=== PATIENT | male | born 1960 | race Caucasian/White ===

== ENCOUNTER 2017-07-26 17:17 | Inpatient (IN) | payer MEDICAID, OTHER ==
[~2017-07-26] VITALS: Ht 177.8 cm; Wt 83.0 kg
[~2017-07-26 17:17] MED LIST: BENZ1TAB10 PO; DIVA500T35 PO; FLUO-191 PO; METO25 PO; PALI6 PO
[2017-07-26] MEDS ORDERED: HEPARIN SQ (18:06)
[2017-07-26 19:50] LABS: BASOPHILS # (AUTO) 0.04 K/uL (0.00-0.20); BASOPHILS % (AUTO) 0.3 % (0.0-2.0); EOSINOPHILS # (AUTO) 0.14 K/uL (0.00-0.70); EOSINOPHILS % (AUTO) 1.14 % (1.0-6.0); HEMATOCRIT 31.3 % (41-53); HEMOGLOBIN 10.6 g/dL (13.5-17.5); LYMPHOCYTES # (AUTO) 3.2 K/uL (1.0-4.8); LYMPHOCYTES % (AUTO) 27.3 % (22.0-44.0); MEAN CORPUSCULAR HEMOGLOBIN 32.6 pg (26.0-34.0); MEAN CORPUSCULAR HGB CONC 33.7 G/dL (31.0-37.0); MEAN CORPUSCULAR VOLUME 97 fL (80-100); MONOCYTES # (AUTO) 1.6 K/uL (0.1-1.0); MONOCYTES % (AUTO) 13.7 % (2.0-9.0); NEUTROPHILS # (AUTO) 6.8 K/uL (1.8-7.7); NEUTROPHILS % (AUTO) 57.6 % (40.0-70.0); PLATELET COUNT (AUTO) 234 K/uL (150-450); RED BLOOD CELL COUNT(AUTO) 3.24 MIL/uL (4.50-5.90)
[2017-07-26 20:02] LABS: PROTHROMBIN TIME 10.6 SEC (9.4-11.6)
[2017-07-26 20:30] LABS: CALCIUM, TOTAL 9.5 mg/dL (8.8-10.5); CREATININE 3.19 mg/dL (0.60-1.30)
[2017-07-26 20:36] LABS: ALBUMIN 3.5 g/dL (3.4-5.0); BILIRUBIN,TOTAL 0.3 mg/dL (0.1-1.0); TOTAL PROTEIN, SERUM 7.2 g/dL (6.4-8.2)
[2017-07-27] MEDS ORDERED: LORazepam 2 MG/ML VIAL IM ONE (00:30)
[2017-07-27] MEDS ORDERED: DiphenhydrAMINE HCL 50 MG/ML VIAL IM ONE (00:30)
[2017-07-27] MEDS ORDERED: HALOPERIDOL LACTATE 5 MG/ML VIAL IM ONE (00:30)
[2017-07-27] MEDS ORDERED: HALOPERIDOL 5 MG TABLET PO PRN (01:30)
[2017-07-27] MEDS ORDERED: LORazepam 2 MG TABLET PO PRN (01:30)
[2017-07-27] MEDS ORDERED: ZOLPIDEM TARTRATE 10 MG TABLET PO PRN (01:30)
[2017-07-27 09:16] VITALS: BP 122/89
[2017-07-27] MEDS ORDERED: PALIPERIDONE 3 MG ER TABLET PO SCH (10:00)
[2017-07-27] MEDS: BENZTROPINE MESYLATE 1 MG TABLET PO SCH ×2 (10:20→17:13)
[2017-07-27] MEDS: FLUoxetine HCL 20 MG CAPSULE PO SCH (10:20)
[2017-07-27] MEDS: DIVALPROEX SODIUM 500 MG ER TABLET PO SCH ×2 (10:24→17:13)
[2017-07-27 17:26] VITALS: BP 122/75
[2017-07-27] MEDS ORDERED: HEPA500018 SQ (17:34)
[2017-07-27] MEDS: PALIPERIDONE 6 MG ER TABLET PO SCH (18:14)
[2017-07-28] MEDS: FERROUS SULFATE 325 MG EC TABLET PO SCH ×3 (06:37→17:01)
[2017-07-28 08:43] VITALS: BP 119/83
[2017-07-28 08:43] LABS: CHOL/HDL RATIO 2.5 (4.2-7.3)
[2017-07-28] MEDS: FLUoxetine HCL 20 MG CAPSULE PO SCH (09:37)
[2017-07-28] MEDS: BENZTROPINE MESYLATE 1 MG TABLET PO SCH ×2 (09:37→17:01)
[2017-07-28] MEDS: DIVALPROEX SODIUM 500 MG ER TABLET PO SCH ×2 (09:37→17:01)
[2017-07-28] MEDS: PALIPERIDONE 6 MG ER TABLET PO SCH ×2 (09:38→17:01)
[2017-07-28 17:30] VITALS: BP 124/87
[2017-07-29 06:28] VITALS: BP 109/69
[2017-07-29] MEDS: FERROUS SULFATE 325 MG EC TABLET PO SCH ×3 (06:56→19:49)
[2017-07-29 08:20] LABS: CALCIUM, TOTAL 9.5 mg/dL (8.8-10.5); CREATININE 2.79 mg/dL (0.60-1.30); MAGNESIUM 1.9 mg/dL (1.80-2.40); PHOSPHORUS 4.9 mg/dL (2.5-4.9); POTASSIUM 4.3 mmol/L (3.5-5.1)
[2017-07-29 08:51] VITALS: BP 107/65
[2017-07-29] MEDS: DIVALPROEX SODIUM 500 MG ER TABLET PO SCH ×2 (10:22→16:41)
[2017-07-29] MEDS: PALIPERIDONE 6 MG ER TABLET PO SCH ×2 (10:22→16:41)
[2017-07-29] MEDS: FLUoxetine HCL 20 MG CAPSULE PO SCH (10:22)
[2017-07-29] MEDS: BENZTROPINE MESYLATE 1 MG TABLET PO SCH ×2 (10:22→16:41)
[2017-07-29 17:15] VITALS: BP 129/90
[2017-07-30] MEDS: FERROUS SULFATE 325 MG EC TABLET PO SCH ×3 (06:55→18:24)
[2017-07-30 07:27] LABS: CALCIUM, TOTAL 9.7 mg/dL (8.8-10.5); CREATININE 2.74 mg/dL (0.60-1.30); PHOSPHORUS 5.4 mg/dL (2.5-4.9); POTASSIUM 4.3 mmol/L (3.5-5.1)
[2017-07-30 08:00] VITALS: BP 120/75
[2017-07-30] MEDS: FLUoxetine HCL 20 MG CAPSULE PO SCH (10:07)
[2017-07-30] MEDS: BENZTROPINE MESYLATE 1 MG TABLET PO SCH ×2 (10:07→18:24)
[2017-07-30] MEDS: PALIPERIDONE 6 MG ER TABLET PO SCH ×2 (10:07→18:25)
[2017-07-30] MEDS: DIVALPROEX SODIUM 500 MG ER TABLET PO SCH ×2 (10:07→18:25)
[2017-07-30 22:59] VITALS: BP 117/69
[2017-07-31] MEDS: FERROUS SULFATE 325 MG EC TABLET PO SCH ×3 (07:03→16:19)
[2017-07-31 08:30] VITALS: BP 140/83
[2017-07-31] MEDS: FLUoxetine HCL 20 MG CAPSULE PO SCH (08:51)
[2017-07-31] MEDS: BENZTROPINE MESYLATE 1 MG TABLET PO SCH ×2 (08:51→16:20)
[2017-07-31] MEDS: PALIPERIDONE 6 MG ER TABLET PO SCH ×2 (08:51→16:19)
[2017-07-31] MEDS: DIVALPROEX SODIUM 500 MG ER TABLET PO SCH ×2 (08:51→16:19)
[2017-07-31] MEDS: PROPRANOLOL HCL 10 MG TABLET PO SCH (16:19)
[2017-07-31 20:53] VITALS: BP 136/81
[2017-08-01] MEDS: FERROUS SULFATE 325 MG EC TABLET PO SCH ×3 (06:49→18:06)
[2017-08-01 06:55] LABS: CALCIUM, TOTAL 9.2 mg/dL (8.8-10.5); CREATININE 2.61 mg/dL (0.60-1.30); MAGNESIUM 1.9 mg/dL (1.80-2.40); PHOSPHORUS 4.4 mg/dL (2.5-4.9); POTASSIUM 4.3 mmol/L (3.5-5.1)
[2017-08-01] MEDS: BENZTROPINE MESYLATE 1 MG TABLET PO SCH ×2 (08:02→17:24)
[2017-08-01] MEDS: DIVALPROEX SODIUM 500 MG ER TABLET PO SCH ×2 (08:02→17:24)
[2017-08-01] MEDS: ASPIRIN 81 MG EC TABLET PO SCH (08:03)
[2017-08-01] MEDS: PROPRANOLOL HCL 10 MG TABLET PO SCH ×3 (08:03→17:00)
[2017-08-01] MEDS: PALIPERIDONE 6 MG ER TABLET PO SCH ×2 (08:03→17:25)
[2017-08-01] MEDS: TAMSULOSIN HCL 0.4 MG CAPSULE PO SCH (08:03)
[2017-08-01] MEDS: FLUoxetine HCL 20 MG CAPSULE PO SCH (08:03)
[2017-08-01] MEDS: MULTIVITAMINS WITH MINERALS, THERAPEUTIC TABLET PO SCH (08:03)
[2017-08-01 08:30] VITALS: BP 125/82
[2017-08-01 10:23] LABS: APPEARANCE,URINE CLOUDY (CLEAR); BILIRUBIN,URINE NEGATIVE (NEGATIVE); GLUCOSE, URINE (UA) NEGATIVE (NEGATIVE); KETONES,URINE NEGATIVE (NEGATIVE); LEUKOCYTE ESTERASE ,URINE LARGE (NEGATIVE); NITRATE,URINE POSITIVE (NEGATIVE); OCCULT BLOOD,URINE TRACE (NEGATIVE); PROTEIN,URINE TRACE (NEGATIVE); UROBILINOGEN,URINE 0.2 mg/dL (<=1.0)
[2017-08-01 10:48] LABS: BACTERIA,URINE Many /HPF (None Seen); SQUAMOUS EPITHELIAL CELL,UR Few /LPF (None Seen); WBC,URINE >100 /HPF (0-5)
[2017-08-01 10:49] LABS: AMORPHOUS SEDIMENT,UR Few /LPF (None Seen)
[2017-08-01] MEDS: SULFAMETHOX/TRIMETH DS 800-160 MG/TABLET PO SCH (17:24)
[2017-08-01 17:27] VITALS: BP 102/64
[2017-08-02] MEDS: FERROUS SULFATE 325 MG EC TABLET PO SCH ×3 (07:04→16:44)
[2017-08-02 08:00] VITALS: BP 117/83
[2017-08-02] MEDS: MULTIVITAMINS WITH MINERALS, THERAPEUTIC TABLET PO SCH (09:41)
[2017-08-02] MEDS: BENZTROPINE MESYLATE 1 MG TABLET PO SCH ×2 (09:41→16:44)
[2017-08-02] MEDS: TAMSULOSIN HCL 0.4 MG CAPSULE PO SCH (09:41)
[2017-08-02] MEDS: DIVALPROEX SODIUM 500 MG ER TABLET PO SCH ×2 (09:41→16:44)
[2017-08-02] MEDS: SULFAMETHOX/TRIMETH DS 800-160 MG/TABLET PO SCH ×2 (09:41→16:44)
[2017-08-02] MEDS: FLUoxetine HCL 20 MG CAPSULE PO SCH (09:41)
[2017-08-02] MEDS: PALIPERIDONE 6 MG ER TABLET PO SCH ×2 (09:41→16:45)
[2017-08-02] MEDS: ASPIRIN 81 MG EC TABLET PO SCH (09:41)
[2017-08-02] MEDS: PROPRANOLOL HCL 10 MG TABLET PO SCH ×3 (09:41→16:51)
[2017-08-02 16:51] VITALS: BP 107/68
[2017-08-03] MEDS: FERROUS SULFATE 325 MG EC TABLET PO SCH ×3 (07:06→17:11)
[2017-08-03 08:00] VITALS: BP 128/82
[2017-08-03] MEDS: ASPIRIN 81 MG EC TABLET PO SCH (09:22)
[2017-08-03] MEDS: DIVALPROEX SODIUM 500 MG ER TABLET PO SCH ×2 (09:22→16:09)
[2017-08-03] MEDS: SULFAMETHOX/TRIMETH DS 800-160 MG/TABLET PO SCH ×2 (09:22→16:09)
[2017-08-03] MEDS: BENZTROPINE MESYLATE 1 MG TABLET PO SCH ×2 (09:22→16:09)
[2017-08-03] MEDS: MULTIVITAMINS WITH MINERALS, THERAPEUTIC TABLET PO SCH (09:23)
[2017-08-03] MEDS: FLUoxetine HCL 20 MG CAPSULE PO SCH (09:23)
[2017-08-03] MEDS: TAMSULOSIN HCL 0.4 MG CAPSULE PO SCH (09:23)
[2017-08-03] MEDS: PALIPERIDONE 6 MG ER TABLET PO SCH ×2 (09:23→16:10)
[2017-08-03] MEDS: PROPRANOLOL HCL 10 MG TABLET PO SCH ×3 (09:24→17:12)
[2017-08-03 16:19] VITALS: BP 104/70
[2017-08-04] MEDS: FERROUS SULFATE 325 MG EC TABLET PO SCH ×3 (06:40→16:34)
[2017-08-04 08:20] VITALS: BP 120/83
[2017-08-04] MEDS: BENZTROPINE MESYLATE 1 MG TABLET PO SCH ×2 (09:37→16:34)
[2017-08-04] MEDS: TAMSULOSIN HCL 0.4 MG CAPSULE PO SCH (09:38)
[2017-08-04] MEDS: DIVALPROEX SODIUM 500 MG ER TABLET PO SCH ×2 (09:38→16:34)
[2017-08-04] MEDS: ASPIRIN 81 MG EC TABLET PO SCH (09:38)
[2017-08-04] MEDS: FLUoxetine HCL 20 MG CAPSULE PO SCH (09:39)
[2017-08-04] MEDS: MULTIVITAMINS WITH MINERALS, THERAPEUTIC TABLET PO SCH (09:39)
[2017-08-04] MEDS: PALIPERIDONE 6 MG ER TABLET PO SCH ×2 (09:39→16:34)
[2017-08-04] MEDS: SULFAMETHOX/TRIMETH DS 800-160 MG/TABLET PO SCH ×2 (09:42→16:34)
[2017-08-04] MEDS: PROPRANOLOL HCL 10 MG TABLET PO SCH ×3 (09:44→16:34)
[2017-08-04 09:48] LABS: CALCIUM, TOTAL 9.4 mg/dL (8.8-10.5); CREATININE 2.9 mg/dL (0.60-1.30); POTASSIUM 4.3 mmol/L (3.5-5.1)
[2017-08-04] MEDS: MAGNESIUM HYDROXIDE SUSPENSION 30 ML UDCUP PO PRN (13:59)
[2017-08-04 17:10] VITALS: BP 107/74
[2017-08-05] MEDS: FERROUS SULFATE 325 MG EC TABLET PO SCH ×3 (06:34→16:27)
[2017-08-05 06:50] LABS: CALCIUM, TOTAL 9.4 mg/dL (8.8-10.5); CREATININE 3.22 mg/dL (0.60-1.30); MAGNESIUM 2.2 mg/dL (1.80-2.40); PHOSPHORUS 4.7 mg/dL (2.5-4.9); POTASSIUM 4.5 mmol/L (3.5-5.1)
[2017-08-05 08:00] VITALS: BP 108/71
[2017-08-05] MEDS: PROPRANOLOL HCL 10 MG TABLET PO SCH ×3 (09:00→16:27)
[2017-08-05] MEDS: TAMSULOSIN HCL 0.4 MG CAPSULE PO SCH (09:08)
[2017-08-05] MEDS: MULTIVITAMINS WITH MINERALS, THERAPEUTIC TABLET PO SCH (09:08)
[2017-08-05] MEDS: FLUoxetine HCL 20 MG CAPSULE PO SCH (09:08)
[2017-08-05] MEDS: ASPIRIN 81 MG EC TABLET PO SCH (09:08)
[2017-08-05] MEDS: BENZTROPINE MESYLATE 1 MG TABLET PO SCH ×2 (09:08→16:26)
[2017-08-05] MEDS: PALIPERIDONE 6 MG ER TABLET PO SCH ×2 (09:08→16:27)
[2017-08-05] MEDS: DIVALPROEX SODIUM 500 MG ER TABLET PO SCH ×2 (09:08→16:26)
[2017-08-05] MEDS: MAGNESIUM HYDROXIDE SUSPENSION 30 ML UDCUP PO PRN (09:09)
[2017-08-05 17:09] LABS: CREATININE 3.15 mg/dL (0.60-1.30)
[2017-08-05 17:19] LABS: APPEARANCE,URINE CLEAR (CLEAR); BILIRUBIN,URINE NEGATIVE (NEGATIVE); GLUCOSE, URINE (UA) NEGATIVE (NEGATIVE); KETONES,URINE NEGATIVE (NEGATIVE); LEUKOCYTE ESTERASE ,URINE NEGATIVE (NEGATIVE); NITRATE,URINE NEGATIVE (NEGATIVE); OCCULT BLOOD,URINE NEGATIVE (NEGATIVE); PH,URINE 6.5 (5.0-8.0); PROTEIN,URINE NEGATIVE (NEGATIVE); UROBILINOGEN,URINE 0.2 mg/dL (<=1.0)
[2017-08-05 17:24] LABS: CREATININE,URINE RANDOM 61.4 mg/dL (30.0-125.0); SODIUM,URINE RANDOM 25 mmol/l (20-110); UREA NITROGEN,URINE RANDOM 472 mg/dL (350-1000)
[2017-08-05 17:28] LABS: BACTERIA,URINE None Seen /HPF (None Seen); RBC,URINE None Seen /HPF (0-2); SQUAMOUS EPITHELIAL CELL,UR Rare /LPF (None Seen); WBC,URINE 0-2 /HPF (0-5)
[2017-08-05 18:00] VITALS: BP 112/69
[2017-08-06] MEDS: FERROUS SULFATE 325 MG EC TABLET PO SCH ×3 (06:55→18:05)
[2017-08-06 07:48] LABS: CALCIUM, TOTAL 9.4 mg/dL (8.8-10.5); CREATININE 3.11 mg/dL (0.60-1.30); MAGNESIUM 2.3 mg/dL (1.80-2.40); PHOSPHORUS 4.3 mg/dL (2.5-4.9); POTASSIUM 4.8 mmol/L (3.5-5.1)
[2017-08-06 08:10] VITALS: BP 117/76
[2017-08-06] MEDS: ASPIRIN 81 MG EC TABLET PO SCH (09:55)
[2017-08-06] MEDS: DIVALPROEX SODIUM 500 MG ER TABLET PO SCH ×2 (09:56→18:04)
[2017-08-06] MEDS: FLUoxetine HCL 20 MG CAPSULE PO SCH (09:56)
[2017-08-06] MEDS: MULTIVITAMINS WITH MINERALS, THERAPEUTIC TABLET PO SCH (09:56)
[2017-08-06] MEDS: BENZTROPINE MESYLATE 1 MG TABLET PO SCH ×2 (09:56→18:04)
[2017-08-06] MEDS: PROPRANOLOL HCL 10 MG TABLET PO SCH ×3 (09:56→18:05)
[2017-08-06] MEDS: TAMSULOSIN HCL 0.4 MG CAPSULE PO SCH (09:56)
[2017-08-06] MEDS: PALIPERIDONE 6 MG ER TABLET PO SCH ×2 (09:56→18:05)
[2017-08-06 18:00] VITALS: BP 112/72
[2017-08-07] MEDS: FERROUS SULFATE 325 MG EC TABLET PO SCH ×2 (06:38→12:55)
[2017-08-07 08:10] VITALS: BP 121/68
[2017-08-07] MEDS: DIVALPROEX SODIUM 500 MG ER TABLET PO SCH (08:36)
[2017-08-07] MEDS: TAMSULOSIN HCL 0.4 MG CAPSULE PO SCH (08:36)
[2017-08-07] MEDS: FLUoxetine HCL 20 MG CAPSULE PO SCH (08:36)
[2017-08-07] MEDS: BENZTROPINE MESYLATE 1 MG TABLET PO SCH (08:36)
[2017-08-07] MEDS: MULTIVITAMINS WITH MINERALS, THERAPEUTIC TABLET PO SCH (08:36)
[2017-08-07] MEDS: ASPIRIN 81 MG EC TABLET PO SCH (08:37)
[2017-08-07] MEDS: PALIPERIDONE 6 MG ER TABLET PO SCH (08:37)
[2017-08-07] MEDS: PROPRANOLOL HCL 10 MG TABLET PO SCH ×2 (08:37→12:55)
[2017-08-07] MEDS ORDERED: ASPI81 PO (10:49)
[2017-08-07] MEDS ORDERED: FERR-89 PO (10:50)
[2017-08-07] MEDS ORDERED: MULT-248 PO (10:53)
== END 2017-08-07 14:32 | disposition home or self-care (01) | DRG 750 ==
LOC: EMS 17:18 → AHU 07-27 07:48 → 3EI 07-27 15:06
DX: F25.0 Schizoaffective disorder, bipolar type (principal); N17.9 Acute kidney failure, unspecified; C37 Malignant neoplasm of thymus; I13.0 Hypertensive heart and chronic kidney disease with heart failure and stage 1 through stage 4 chronic kidney disease, or unspecified chronic kidney disease; E86.0 Dehydration; I50.9 Heart failure, unspecified; I12.9 Hypertensive chronic kidney disease with stage 1 through stage 4 chronic kidney disease, or unspecified chronic kidney disease; D64.9 Anemia, unspecified; F41.9 Anxiety disorder, unspecified; N18.9 Chronic kidney disease, unspecified; I25.10 Atherosclerotic heart disease of native coronary artery without angina pectoris; N40.0 Benign prostatic hyperplasia without lower urinary tract symptoms; Z79.899 Other long term (current) drug therapy; Z85.238 Personal history of other malignant neoplasm of thymus; Z95.1 Presence of aortocoronary bypass graft; Z88.8 Allergy status to other drugs, medicaments and biological substances
CPT/HCPCS: 76770; 82565; 82570; 83735; 84100; 84300; 84520; 84540; 87086; 93970; 96372; 99285; J1200; J1630; J2060